=== PATIENT | male | born 1965 | race Caucasian/White ===

== ENCOUNTER 2022-05-09 09:24 | Emergency (ER) | payer OTHER, SELFPAY ==
[2022-05-09] VITALS (7 sets, daily range): BP systolic 95–121; BP diastolic 50–80; PULSE 54–63; RESP 16–22; TEMP 36.4; O2SAT 94–97; BMI 29.8
--- NOTE | 2022-05-09 10:20 | CRLHL7_ITS ---
For Patients: As a result of the Century Cures Act, medical imaging exams and procedure reports are released immediately into your electronic medical record. You may view this report before your referring provider. If you have questions, please contact your health care provider. INDICATION: CHEST PAIN TECHNIQUE: Chest 2 views. COMPARISON: 11/27/17 FINDINGS: Cardiovascular and mediastinum: Heart size and vasculature are normal in caliber and appearance. Mediastinum is within normal limits. Lungs and pleural spaces: Lungs are clear. No sign of infiltrate or mass. No sign of pleural effusion. No pneumothorax. Bones and soft tissues: No significant findings. IMPRESSION: Unremarkable chest. Dictated by: Vaughn Trent MD @ 05/09/2022 12:04:58 (Electronically Signed)
[2022-05-09 10:42] LABS: Basophils Absolute Auto 0.03 K/uL (0.00-0.30); Basophils Percent Auto 0.6 % (0.0-3.0); Hematocrit 41.1 % (37.0-53.0); Hemoglobin* 14.2 gm/dL (13.5-17.5); Immature Granulocytes Abs Auto 0.01 K/uL (0.00-0.30); Lymphocytes Absolute Auto 1.87 K/uL (0.90-2.90); Lymphocytes Percent Auto 37.6 % (20-44); Mean Corpuscular HGB Conc 35 gm/dL (32-36); Mean Corpuscular Hemoglobin 33 pg (26-34); Mean Corpuscular Volume 95 fL (80-100); Neutrophils Absolute Auto 2.47 K/uL (1.7-7.0); Neutrophils Percent Auto 49.6 % (42.0-72.0); Platelet Count* 167 K/uL (140-440); RDW Coefficient of Variation % 12.1 % (11.5-15.5); Red Blood Count 4.32 m/uL (4.30-5.90); White Blood Count* 4.98 K/uL (4.50-11.00)
--- NOTE | 2022-05-09 10:47 | ED.CHESTPAIN ---
HPI - Chest Pain General Time Seen by Provider: 10:48 Date Seen: 05/09/22 Chief Complaint: Chest Pain Stated Complaint: Chest, upper left arm pain Time Seen by Provider: 05/09/22 10:09 Source: patient Mode of arrival: ambulatory Limitations: no limitations History of Present Illness HPI narrative: Patient is a 57-year-old gentleman who presents here with left-sided chest pain with radiation to his left inner arm. But not below his left elbow. This occurred since yesterday, came on gradually noted in the afternoon. He was up in [place] with his , he they considered briefly going to [facility] for an evaluation but he said it was still going on the next day that he would come in and be seen. As his had a colonoscopy today at our hospital he checked himself into the emergency room. He describes the pain is improved since yesterday over the left side of his chest into his left inner arm. Really not reproducible with pressure or movement of his left arm. He does not have any pain also with taking deep breaths in, twisting turning. He sees no worsening exacerbation with exertion or anything else that just seemingly always there. Denies any other symptoms such as nausea sweating, or other issues. Does have a history of previous stent placement in 2018 anatomy which is unknown at the [facility], he also since October of this year, has been treated for a left ventricular clot, with Xarelto currently. Has not had any recent stress test, his seen by the [facility] at [place], with a known left sided ejection fraction of 37%. Tells me also that his blood pressure runs low secondary to medications. MD complaint: chest discomfort Pertinent past history: coronary artery disease and other Onset (ago): day(s) Timing of current episode: constant Prior episodes: No Onset: during rest Pain location: left chest Pain radiation: left arm Severity: moderate Quality: aching and heaviness Relieving factors: nothing Exacerbating factors: nothing Treatment prior to arrival: aspirin (Took 650 mg of aspirin this morning usually takes 81) Risk Factors Pulmonary embolism risk factors: history of deep vein thrombosis Related Data Home Medications Medication Instructions Recorded Confirmed ezetimibe 10 mg tablet mg 05/09/22 metoprolol succinate 50 mg mg PO 05/09/22 tablet,extended release 24 hr rivaroxaban 15 mg tablet (Xarelto) mg 05/09/22 rosuvastatin 40 mg tablet mg 05/09/22 valsartan 160 mg tablet mg 05/09/22 Allergies Allergy/AdvReac Type Severity Reaction Status Date / Time Sulfa (Sulfonamide Allergy Severe Swelling Verified 05/09/22 11:31 Antibiotics) of Lip/Tongue/Throat Review of Systems Status of ROS Reports: 10 or more systems reviewed and unremarkable except as noted in History and below PFSH PFSH Social History Smoking Status: Former smoker Do you use any of these nicotine containing products: None Second hand tobacco smoke exposure: No How often do you have a drink containing alcohol: 2-3 times a week How many standard drinks containing alcohol do you have on a typical day: 1 or 2 How often do you have six or more drinks on one occasion: Never AUDIT-C Alcohol total score: 3 Non-prescribed substance use: denies use service: No Exam Narrative Exam Narrative: Patient is seen and assessed he is in no apparent distress speaking to me normally. His pupils are equal round reactive to light, fundi appear normal, TMs are normal, carotid upstrokes are equal bilaterally JVP is flat mouth opening is normal. Chest is good air entry bilaterally no wheezing crackles noted heart sounds are normal. He is on reproducible pain across the left side of his chest into his left arm. His neck is full range of motion, in flexion extension lateral flexion is not reproduces discomfort coming down his left arm. I am unable to palpate any obvious masses or injury over his left arm. In the upper inner or outer side. His muscles all seem normal. He has normal triceps biceps power. His brachial and radial pulse are normal also. Fine motor movements are of his hands bilaterally are normal. Skin reveals no petechiae or rashes his abdomen is soft and obese there is no guarding no past minimally bowel sounds are normally moves all extremities independently and well. No edema is noted. Const Vital Signs, click to edit/add: Vital Signs - 24 hr 05/09/22 09:47 05/09/22 10:00 Temperature 97.5 F L Pulse Rate [Left Pulse Oximeter] 63 62 Respiratory Rate 18 18 Blood Pressure [Left Upper Arm] 116/73 106/70 Pulse Oximetry 95 95 Documenting provider has reviewed patient's vital signs: yes Common normals: no apparent distress General appearance: cooperative Course Course Hospital Course: 2:07 p.m. did speak with the [facility] prop maker who was able to review his chart. He had a normal angiogram done in November, showing no flow-limiting lesions, and patent stent. He does have a history of the chest pain going back quite some time, his chest pain is not at all exertional, and the prop maker did not feel a stress test would be needed. Two troponins and at this point he thinks he can go. With follow-up with them. I discussed this with the patient and his and they are in agreement. To return if further chest pain or other issues. Vital Signs Vital signs: Initial Vital Signs Temperature 97.5 F L 05/09/22 09:47 Temperature Source Temporal Artery Scan 05/09/22 09:47 Pulse Rate 63 05/09/22 09:47 Respiratory Rate 18 05/09/22 09:47 Blood Pressure 116/73 05/09/22 09:47 Blood Pressure Mean 87 05/09/22 09:47 Blood Pressure Position Sitting 05/09/22 09:47 Pulse Oximetry 95 05/09/22 09:47 Oxygen Delivery Method 05/09/22 09:47 Vital Signs Temperature 97.5 F L 05/09/22 09:47 Pulse Rate 63 05/09/22 09:47 Respiratory Rate 18 05/09/22 09:47 Blood Pressure 116/73 05/09/22 09:47 Pulse Oximetry 95 05/09/22 09:47 Temperature 97.5 F L 05/09/22 09:47 Pulse Rate 62 05/09/22 10:00 Respiratory Rate 18 05/09/22 10:00 Blood Pressure 106/70 05/09/22 10:00 Pulse Oximetry 95 05/09/22 10:00 MDM - Chest Pain MDM Narrative Medical decision making narrative: During the evaluation of this patient I considered multiple differential diagnosis is. The life-threatening differential diagnosis include coronary disease/[place], pulmonary embolism, pneumothorax, pneumonia, and aortic dissection. Other differential diagnosis included but were not limited to pericarditis, myocarditis, chest wall pain, GERD, esophageal rupture, rib fracture contusion, pleurisy, as well as other etiologies. I discussed with him that he has a lot a high risk features including previous coronary artery disease and the history of the left ventricular clot. We should go ahead and get some information from [facility] as I do not have any on file here for him. And do some blood tests including troponin EKG and other things. I will talk to [facility] after this occurs. Medical Records Data Attestation: I reviewed the patient's medical records. Lab Data Attestation: I reviewed the patient's lab results. Labs: Lab Results 05/09/22 05/09/22 05/09/22 Range/Units 09:55 09:55 09:55 WBC 4.98 (4.50-11.00) K/uL RBC 4.32 (4.30-5.90) m/uL Hgb 14.2 (13.5-17.5) gm/dL Hct 41.1 (37.0-53.0) % MCV 95 (80-100) fL MCH 33 (26-34) pg MCHC 35 (32-36) gm/dL RDW Coeff of Earnestine 12.1 (11.5-15.5) % Plt Count 167 (140-440) K/uL Neut % (Auto) 49.6 (42.0-72.0) % Lymph % (Auto) 37.6 (20-44) % [place] % (Auto) 8.0 (0.0-11.0) % Eos % (Auto) 4.0 (0.0-7.0) % Baso % (Auto) 0.6 (0.0-3.0) % Neut # (Auto) 2.47 (1.7-7.0) K/uL Lymph # (Auto) 1.87 (0.90-2.90) K/uL [place] # (Auto) 0.40 (0.00-0.90) K/UL Eos # (Auto) 0.20 (0.00-0.50) K/uL Baso # (Auto) 0.03 (0.00-0.30) K/uL Abs Immat Gran (auto) 0.01 (0.00-0.30) K/uL INR 2.08 H (0.91-1.10) APTT 41 H (23-33) Seconds D-Dimer Quant (PE/DVT) < 0.27 (0.00-0.50) ug/ml Sodium 140 (135-149) mmol/L Potassium 4.2 (3.6-5.1) mmol/L Chloride 109 (96-114) mmol/L Carbon Dioxide 24 (20-32) mmol/L BUN 12 (7-30) mg/dL Creatinine 1.0 (0.5-1.5) mg/dL Estimated Creat Clear 88.38 Estimated GFR 87 ml/min Glucose 103 (60-115) mg/dL Calcium 8.6 (8.4-10.6) mg/dL NT-Pro-B Natriuret Pep 115 (0-125) PG/mL POC Troponin I (0.01-0.04) ng/ml 05/09/22 05/09/22 Range/Units 09:55 12:35 WBC (4.50-11.00) K/uL RBC (4.30-5.90) m/uL Hgb (13.5-17.5) gm/dL Hct (37.0-53.0) % MCV (80-100) fL MCH (26-34) pg MCHC (32-36) gm/dL RDW Coeff of Earnestine (11.5-15.5) % Plt Count (140-440) K/uL Neut % (Auto) (42.0-72.0) % Lymph % (Auto) (20-44) % [place] % (Auto) (0.0-11.0) % Eos % (Auto) (0.0-7.0) % Baso % (Auto) (0.0-3.0) % Neut # (Auto) (1.7-7.0) K/uL Lymph # (Auto) (0.90-2.90) K/uL [place] # (Auto) (0.00-0.90) K/UL Eos # (Auto) (0.00-0.50) K/uL Baso # (Auto) (0.00-0.30) K/uL Abs Immat Gran (auto) (0.00-0.30) K/uL INR (0.91-1.10) APTT (23-33) Seconds D-Dimer Quant (PE/DVT) (0.00-0.50) ug/ml Sodium (135-149) mmol/L Potassium (3.6-5.1) mmol/L Chloride (96-114) mmol/L Carbon Dioxide (20-32) mmol/L BUN (7-30) mg/dL Creatinine (0.5-1.5) mg/dL Estimated Creat Clear Estimated GFR ml/min Glucose (60-115) mg/dL Calcium (8.4-10.6) mg/dL NT-Pro-B Natriuret Pep (0-125) PG/mL POC Troponin I 0.00 L 0.00 L (0.01-0.04) ng/ml ECG Data Attestation: I personally reviewed and interpreted this ECG as follows: ECG interpretation date: 05/09/22 ECG interpretation time: 10:53 Prior ECG tracings: available for review Interpretation: Sinus rhythm with 1st degree AV block, low-voltage QRS Q-waves noted across the precordial leads consistent with previous [place]. I compared to old EKG from November 2017 there is really no appreciable change. Discharge Plan Discharge Clinical Impression: History of PTCA, Atypical chest pain, Thrombus in heart chamber Patient Disposition: Home w/ Parent or Adult Condition: Stable Instructions: Chest Pain (ED) Additional Instructions: Home rest reassurance given 2 troponins, and discussion with [facility] I think it is reasonable lung he go home. They would like you to follow-up through the nurses line there and schedule an appointment. Return if increasing chest pain shortness of breath or other issues. New current medications Prescriptions: No Action metoprolol succinate 50 mg tablet extended release 24 hr PO 0RF Label Comments: TAKE 1 TAB IN AM AND HALF TAB IN PM DIRECTED valsartan 160 mg tablet 0RF Label Comments: TAKE 1/2 TABLET BY MOUTH DAILY THRU 12/22, THEN INCREASE TO 1/2 TABLET TWICE DAILY THEREAFTER ezetimibe 10 mg tablet 0RF Label Comments: TAKE 1 TABLET BY MOUTH EVERY DAY rosuvastatin 40 mg tablet 0RF Label Comments: TAKE 1 TABLET BY MOUTH EVERY DAY Xarelto 15 mg tablet 0RF Label Comments: TAKE 1 TABLET BY MOUTH TWICE A DAY FOR 21 DAYS Follow Up/Referrals: Marti Vega MD [Primary Care Provider] - Stand Alone Forms: MyHealth Info Instructions
[2022-05-09 11:05] LABS: Slide Review Reflex No
[2022-05-09 11:06] LABS: Chloride* 109 mmol/L (96-114); Potassium* 4.2 mmol/L (3.6-5.1); Sodium* 140 mmol/L (135-149)
[2022-05-09 11:09] LABS: Carbon Dioxide* 24 mmol/L (20-32); Est. Creatinine Clearance* 88.38; Estimated Glomerular Filt Rate 87 ml/min
[2022-05-09 11:10] LABS: Blood Urea Nitrogen* 12 mg/dL (7-30); Calcium* 8.6 mg/dL (8.4-10.6); Glucose* 103 mg/dL (60-115)
[2022-05-09 11:16] LABS: INR 2.08 (0.91-1.10); Partial Thromboplastin Time* 41 Seconds (23-33); Prothrombin Time 23.8 Seconds
[2022-05-09 11:19] LABS: NT Pro B Type NatriureticPept* 115 PG/mL (0-125)
--- NOTE | 2022-05-09 11:31 | ED.NURSE ---
Patient resting on cot, eyes closed. Awakens easily, denies needs. Pain unchanged. VSS.
[2022-05-09 11:33] LABS: D Dimer Quantitative* < 0.27 ug/ml (0.00-0.50)
== END 2022-05-09 14:11 | disposition home or self-care (01) ==
PROVIDERS: Emergency Provider Family Medicine; PCP Internal Medicine
DX: R07.9 Chest pain, unspecified (principal)
CPT/HCPCS: 36415; 71046; 80048; 83880; 84484; 85025; 85379; 85610; 85730; 93005; 99285